=== PATIENT | female | born 1980 | race Caucasian/White ===

== ENCOUNTER 2016-09-14 20:35 | Emergency (ER) | payer OTHER ==
[2016-09-14 20:49] VITALS: BP 138/81
--- OUTSIDE RECORDS SUMMARY | 2016-09-14 21:05 | XMS REPORT | Continuity of Care Document ---
:1980 Author Organization [facility] [place] [address] Care Team Providers Name Role Phone Maximus Pompa Primary Care Provider [phone] Source Comments This disclosure is being made pursuant to the [employer] program and maynot contain all information available regarding this patient.[facility] Active Allergies and Adverse Reactions Not on File Current Medications Be aware that medications may not be up to date as of this document. Alwaysverify current medications with the patient. Not on file Active Problems Not on file Social History Tobacco Use Types Packs/Day Years Used Date Never Assessed Plan of Care Health Maintenance Due Date Last Done Comments Tetanus/Pertussis (1 - Tdap) 1997 Retired-INFLUENZA VACCINE 02/22/2016 Pap Smear 07/09/2016 07/09/2013, 09/23/2011 Results from Last 3 Months Not on file
--- OUTSIDE RECORDS SUMMARY | 2016-09-14 21:05 | XMS REPORT | Continuity of Care Document ---
:1980 Author Organization [facility] ([facility]) Address [place] [address] Phone [phone] Care Team Providers Name Role Phone Provider, No-Primary Care Primary Care Provider Unavailable Source Comments This disclosure is being made pursuant to the Care Everywhere program, applicable federal and state laws, and may not contain all informaitonavailable regarding this patient.[facility] ([facility]) Active Allergies and Adverse Reactions Not on File Current Medications Not on file Active Problems Not on file Social History Tobacco Use Types Packs/Day Years Used Date Never Assessed Plan of Care Date Type Specialty Providers Description 10/10/2016 Appointment Family Practice Unruly Soto MD Chief Comp: Patient [address] [place] [address] Visit [phone] (Fax) Health Maintenance Due Date Last Done Comments Hepatitis B Vaccine (1 of 3 - Primary 1978 Series) Tdap Vaccine 1989 Lipid Disorder Screening 1996 MMR Vaccine 1996 Td Vaccine 1996 Cervical Cancer Screening 2008 01/09/2000, 08/16/1999 Influenza Vaccine: Seasonal (#1) 01/22/2016 Results from Last 3 Months Not on file
[2016-09-14 21:31] LABS: Hematocrit 45.7 % (37.0-47.0); Hemoglobin 15.9 gm/dL (12.5-16.0); Mean Cell Volume 87.5 fl (78-100); Mean Corpuscular Hemoglobin 30.5 pg (27-31); Mean Corpuscular Hgb Conc 34.8 g/dl (32-36); Mean Platelet Volume 10.2 fl (6.0-9.5); Neutrophil # 7.7 K/mm3 (1.3-6.0); Neutrophil % 60.5 % (42-75.0); Platelet Count 221 K/mm3 (150-450); Red Blood Count 5.22 M/mm3 (4.2-5.4); Red Cell Distribution Width 12.2 % (11.5-14.0); White Blood Count 12.7 K/mm3 (4.0-10.5)
--- NOTE | 2016-09-14 21:32 | ERNOTE ---
Lower Extremity HPI - Narrative Date of Service: 09/14/16 - General Lower Extremities Pain: hip: left Time Seen by Provider: 09/14/16 20:57 Source: patient Exam Limitations: no limitations - Immun/Allergies/Home Medications Immunizations: IMMUNIZATION HX Immunizations Up to Date Yes History of Influenza Vaccine No Hx Pneumococcal Vaccination Yes Allergies/Adverse Reactions: Allergies Allergy/AdvReac Type Severity Reaction Status Date / Time buspirone HCl [From BuSpar] AdvReac Mild rash Verified 06/06/16 11:31 promethazine HCl AdvReac Mild Vomiting Verified 06/06/16 11:31 [From Phenergan] Home Medications: HOME MEDICATIONS Albuterol Sulfate [Albuterol Sulfate 2.5 MG/0.5ML] 1 vial IH Q4H PRN 06/06/16 [ Last Taken Unknown] Loratadine [Claritin] 10 mg PO DAILY 06/06/16 [Last Taken Unknown] Meloxicam [Mobic] 15 mg PO DAILY 06/06/16 [Last Taken Unknown] Omeprazole 20 mg PO DAILY 06/06/16 [Last Taken Unknown] lamoTRIgine [Lamictal Xr] 200 mg PO DAILY 06/06/16 [Last Taken Unknown] risperiDONE [Risperidone] 2 mg PO DAILY 06/06/16 [Last Taken Unknown] oxyCODONE HCL/ACETAMINOPHEN [Percocet 5-325 mg Tablet] 1 each PO QID PRN [Last Taken Unknown] - History of Present Illness Narrative: Pt. comes in with c/o L lateral hip pain that radiates down her L leg with ambulation but pt. denies any increase in pain with movement or palpation. Review of Systems - Review of Systems Constitutional: Present: no symptoms reported. Absent: recent illness, fever, chills, weakness, fatigue, malaise EYE: Present: no symptoms reported ENT: Present: no symptoms reported Respiratory: Present: no symptoms reported. Absent: shortness of breath, cough , wheezing Cardiology: Present: no symptoms reported. Absent: chest pain, palpitations, edema Gastrointestinal/Abdominal: Present: no symptoms reported. Absent: nausea, vomiting, diarrhea Musculoskeletal: Present: joint pain - L hip Skin: Present: no symptoms reported. Absent: rash, change in color Neurological: Present: no symptoms reported. Absent: headache, dizziness/light- headedness, numbness, tingling All Other Systems: All systems neg except as marked - Patient's Past Medical History Patient History - Medical: Arthritis, Bipolar, GERD Patient History - Cardiac/Respiratory: Asthma Patient History - Cancer: No Hx of Cancer Patient History - Surgical Procedures: Back Surgery, , EGD, Hysterectomy, Tubal Ligation, Other Patient History - Other: None - Social History Living Situations: other Abuse History: No History of abuse Psych History: Hx of Bipolar Disorder Smoking Status: Current every day smoker Have you smoked in the past 12 months: Yes Alcohol Use: none Drug Use: none - Immunizations Immunizations Up to Date: Yes Hx Pneumococcal Vaccination: Yes History of Influenza Vaccine: No Physical Exam - Physical Exam General Appearance: Present: wd/wn, alert, no apparent distress Eye Exam: Normal inspection: bilateral, PERRL: bilateral, EOMI: bilateral Ears, Nose, Throat: Present: normal ENT inspection, normal pharynx Neck: Present: normal inspection, nontender. Absent: lymphadenopathy (R), lymphadenopathy (L) Respiratory: Present: no respiratory distress, normal breath sounds, no accessory muscle use, chest nontender, lungs clear Cardiovascular/Chest: Present: regular rate, rhythm, no murmur, normal peripheral pulses Extremity Exam: Present: normal inspection, non-tender, normal range of motion, no edema Neurological Exam: Present: alert, oriented, normal mood/affect, no motor/ sensory deficits Skin Exam: Present: normal color, warm/dry. Absent: pallor, skin rash ED Progress - Results and Orders Patient's Lab Results:: I have reviewed the patient's lab results. - Vital Signs Patient's Vital Signs:: I have reviewed the patient's vital signs. Vital Signs: Vital Signs 09/14/16 20:42 Temperature 36.9 C Pulse Rate 92 Respiratory 16 Rate Blood Pressure 138/81 O2 Sat by Pulse 98 Oximetry - X-Ray X-Ray #1 X-Ray: hip Interpretation: Interp. by me X-ray Comments: degenerative disease of B hips no acute process - Progress/Reassessment Chief Complaint: Hip Pain/Injury Departure Clinical Impression: Degenerative joint disease (DJD) of hip Qualifiers: Osteoarthritis type: primary Laterality: bilateral Qualified Code(s): M16.0 - Bilateral primary osteoarthritis of hip - Departure Disposition: Home self-care Condition: Good Instructions: Osteoarthritis, Arthritis, [id number] Additional Instructions: Please continue pain medications as ordered and follow up with primary provider. Referrals: Andrea Lentz MD [Primary Care Provider] -
[2016-09-14 21:34] LABS: BUN/Creatinine Ratio 17.4 (9.0-21.6); Potassium 3.9 mmol/L (3.4-4.6)
[2016-09-14 21:35] LABS: Albumin * 3.7 gm/dl (3.4-5.0); Anion Gap 13.5 mmol/L (6.8-13.8); Bilirubin, Total 0.2 mg/dL (0.0-1.1); Ca. Corrected For Albumin 8.8 mg/dL (8.4-10.2); Calcium * 8.9 mg/dL (7.9-10.9); Carbon Dioxide 24.4 mmol/L (24-32.6); Total Protein 7.6 gm/dL (6.2-8.2)
== END 2016-09-14 22:16 | disposition home or self-care (01) ==
LOC: ER 20:35
DX: M16.0 Bilateral primary osteoarthritis of hip (principal); Z72.0 Tobacco use; F31.70 Bipolar disorder, currently in remission, most recent episode unspecified; K21.9 Gastro-esophageal reflux disease without esophagitis; M19.90 Unspecified osteoarthritis, unspecified site; J45.909 Unspecified asthma, uncomplicated

== ENCOUNTER 2016-09-19 20:00 | Emergency (ER) | payer OTHER ==
[2016-09-19 20:07] VITALS: BP 147/78
--- OUTSIDE RECORDS SUMMARY | 2016-09-19 20:40 | XMS REPORT | Continuity of Care Document ---
:1980 Author Organization [facility] [place] [address] Care Team Providers Name Role Phone Maximus Pompa Primary Care Provider [phone] Source Comments This disclosure is being made pursuant to the [employer] program and maynot contain all information available regarding this patient.[facility] Active Allergies and Adverse Reactions Not on [...]
--- NOTE | 2016-09-19 20:41 | ERNOTE ---
Lower Extremity HPI - Narrative Date of Service: 09/19/16 - General Lower Extremities Pain: hip: left Time Seen by Provider: 09/19/16 20:28 Source: patient Exam Limitations: no limitations - Immun/Allergies/Home Medications Immunizations: IMMUNIZATION HX Immunizations Up to Date No History of Influenza Vaccine No Hx Pneumococcal Vaccination Yes Allergies/Adverse Reactions: Allergies Allergy/AdvReac Type Severity Reaction Status Date / Time buspirone HCl [From BuSpar] AdvReac Mild rash Verified 09/19/16 20:07 promethazine HCl AdvReac Mild Vomiting Verified 06/06/16 11:31 [From Phenergan] Home Medications: HOME MEDICATIONS Albuterol Sulfate [Albuterol Sulfate 2.5 MG/0.5ML] 1 vial IH Q4H PRN 06/06/16 [ Last Taken Unknown] Loratadine [Claritin] 10 mg PO DAILY 06/06/16 [Last Taken Unknown] Meloxicam [Mobic] 15 mg PO DAILY 06/06/16 [Last Taken Unknown] Omeprazole 20 mg PO DAILY 06/06/16 [Last Taken Unknown] lamoTRIgine [Lamictal Xr] 200 mg PO DAILY 06/06/16 [Last Taken Unknown] risperiDONE [Risperidone] 2 mg PO DAILY 06/06/16 [Last Taken Unknown] oxyCODONE HCL/ACETAMINOPHEN [Percocet 5-325 mg Tablet] 1 each PO QID PRN [Last Taken Unknown] - History of Present Illness Narrative: Pt. comes in with c/o L hip pain. Pt. denies any change in the pain since she was seen here five days ago. Pt. has not followed up with her PCP as she is afraid that he will just throw pills at her without actually finding out what the problem is. Pt. had sparingly taken oxycodone for the pain that makes the pain tolerable but it worsens as the medication wears off and pt. does not want to take medications permanently for this. Review of Systems - Review of Systems Constitutional: Present: no symptoms reported. Absent: recent illness, fever, chills, weakness, fatigue, malaise EYE: Present: no symptoms reported ENT: Present: no symptoms reported Respiratory: Present: no symptoms reported. Absent: shortness of breath, cough , wheezing Cardiology: Present: no symptoms reported. Absent: chest pain, palpitations, edema Gastrointestinal/Abdominal: Present: no symptoms reported. Absent: nausea, vomiting, diarrhea Genitourinary: Present: no symptoms reported Musculoskeletal: Present: joint pain - L lateral Anterior crest of hip, joint swelling - L hip. Absent: back pain Skin: Present: no symptoms reported Neurological: Present: no symptoms reported. Absent: headache, dizziness/light- headedness, numbness, tingling All Other Systems: All systems neg except as marked - Patient's Past Medical History Patient History - Medical: Arthritis, Bipolar, Chronic Pain, GERD Patient History - Cardiac/Respiratory: Asthma Patient History - Cancer: No Hx of Cancer Patient History - Surgical Procedures: Back Surgery, , EGD, Hysterectomy, Tubal Ligation, Other Patient History - Other: None - Social History Living Situations: home Abuse History: No History of abuse Psych History: Hx of Bipolar Disorder Smoking Status: Current every day smoker Patient requests Smoking Cessation Consult: No Initiate information on Smoking Cessation: No Alcohol Use: none Drug Use: none - Immunizations Immunizations Up to Date: No Hx Pneumococcal Vaccination: Yes History of Influenza Vaccine: No Physical Exam - Physical Exam General Appearance: Present: wd/wn, alert, no apparent distress Eye Exam: Normal inspection: bilateral, PERRL: bilateral, EOMI: bilateral Ears, Nose, Throat: Present: normal ENT inspection, normal pharynx Neck: Present: normal inspection, nontender. Absent: lymphadenopathy (R), lymphadenopathy (L) Respiratory: Present: no respiratory distress, normal breath sounds, no accessory muscle use, chest nontender, lungs clear Cardiovascular/Chest: Present: regular rate, rhythm, no murmur, normal peripheral pulses Gastrointestinal/Abdominal: Present: normal bowel sounds, nontender Extremity Exam: Present: normal range of motion, no edema, bony tenderness - L anterior crest of hip. Absent: joint redness, joint swelling Neurological Exam: Present: alert, oriented, normal mood/affect, no motor/ sensory deficits Skin Exam: Present: normal color, warm/dry. Absent: pallor, skin rash ED Progress - Date and Time Seen: Date and Time: 09/19/16 20:40 As pt. has been here recently without diagnosis of hip problem CT is next step in diagnosis of hip etiology. - Vital Signs Patient's Vital Signs:: I have reviewed the patient's vital signs. Vital Signs: Vital Signs 09/19/16 20:01 Temperature 37 C Pulse Rate 110 H Respiratory 18 Rate Blood Pressure 147/78 O2 Sat by Pulse 97 Oximetry - CT/Ultrasound CT/Ultrasound Narrative: Hip CT negative for any bony abnormality including avascular necrosis, stress fracture, or osteomylitis. - Progress/Reassessment Chief Complaint: Hip Pain/Injury Progress:: Unchanged Departure Clinical Impression: Degenerative joint disease (DJD) of hip Qualifiers: Osteoarthritis type: primary Laterality: bilateral Qualified Code(s): M16.0 - Bilateral primary osteoarthritis of hip - Departure Disposition: Home self-care Condition: Good Instructions: Osteoarthritis Additional Instructions: Please follow up with orthopedics to discuss injection, and further treatment of hip. Referrals: Andrea Lentz MD [Primary Care Provider] - Lj Mcginnis MD [Staff Physician] -
--- OUTSIDE RECORDS SUMMARY | 2016-09-19 20:41 | XMS REPORT | Continuity of Care Document ---
:1980 Author Organization [facility] ([facility]) Address [place] [address] Phone [phone] Care Team Providers Name Role Phone Provider, No-Primary Care Primary Care Provider Unavailable Source Comments This disclosure is being made pursuant to the Care Everywhere program, applicable federal and state laws, and may not contain all informaitonavailable regarding this patient.[facility] ([facility]) Active Allergies and Adverse Reactions Not on File Current Medications Not on file Active Problems Not on file Social History Tobacco Use Types Packs/Day Years Used Date Never Assessed Plan of Care Date Type Specialty Providers Description 10/10/2016 Appointment Family Practice Unruly Soto MD Chief Comp: Patient [address] [place] [address] Visit [phone] (Fax) Health Maintenance Due Date Last Done Comments Hepatitis B Vaccine (1 of 3 - Primary 1980 Series) Tdap Vaccine 1989 Lipid Disorder Screening 1996 MMR Vaccine 1996 Td Vaccine 1996 Cervical Cancer Screening 2008 01/09/2000, 08/16/1999 Influenza Vaccine: Seasonal (#1) 01/22/2016 Results from Last 3 Months Not on file
[2016-09-19] MEDS ORDERED: KETOROLAC TROMETHAMINE 60 MG/2 ML VIAL IM ONE ×2 (22:06→22:07)
== END 2016-09-19 22:11 | disposition home or self-care (01) ==
LOC: ER 20:00
DX: M16.0 Bilateral primary osteoarthritis of hip (principal)